=== PATIENT | male | born 1970 | race Caucasian/White ===

== ENCOUNTER 2018-04-15 09:36 | Emergency (ER) | payer BC ==
[~2018-04-15] VITALS: Ht 165.1 cm; Wt 102.4 kg
[2018-04-15 10:40] LABS: BASOPHIL (%) 0.7 % (0-1); BASOPHIL COUNT 0.1 K/uL (0-0.1); EOSINOPHIL (%) 0.6 % (0-5); EOSINOPHIL COUNT 0.1 K/uL (0-0.3); HEMATOCRIT 43.5 % (38.0-50.0); HEMOGLOBIN 15.8 G/DL (12.5-16.6); IMMATURE GRANULOCYTE (%) 0.5 % (0.0-0.7); LYMPHOCYTE (%) 24.8 % (15-42); LYMPHOCYTE COUNT 2.2 K/uL (1.0-2.8); MCH 28.9 PG (29.0-34.0); MCHC 36.3 G/DL (30.0-36.0); MCV 79.5 FL (86-99); MONOCYTE (%) 5.3 % (3-12); MONOCYTE COUNT 0.5 K/uL (0-0.8); NEUTROPHIL (%) 68.1 % (45-76); NEUTROPHIL COUNT 6.1 K/uL (1.8-6.4); PLATELET COUNT 209 K/uL (156-360); RBC DIS.WIDTH-CV 11.9 % (11.8-14.6); RBC DIS.WIDTH-SD 34.2 % (39-53); RED BLOOD COUNT 5.47 M/uL (4.00-5.50); WHITE BLOOD COUNT 8.9 K/uL (4.1-10.2)
[2018-04-15 10:45] LABS: INTER. NORMALIZED RATIO 1.1
[2018-04-15 10:48] LABS: PTT 24.6 SEC (25-37)
[2018-04-15 10:50] LABS: CHLORIDE 101 mEq/L (99-109); POTASSIUM 4.2 mEq/L (3.7-5.4); SODIUM 136 mEq/L (136-147)
[2018-04-15 10:52] LABS: GLUCOSE 354 mg/dL (70-99)
[2018-04-15 10:56] LABS: GFR ESTIMATE (CALCULATED) > 59 mL/min/ (58.99-99999)
[2018-04-15 10:57] LABS: UREA NITROGEN (BUN) 15 mg/dL (9-23)
[2018-04-15] MEDS ORDERED: KEFLEX500 MG PO (13:18)
[2018-04-15 13:53] VITALS: BP 155/109
== END 2018-04-15 13:54 | disposition home or self-care (01) ==
LOC: EME 09:36
PROVIDERS: Physician Assistant
DX: L03.115 Cellulitis of right lower limb (principal); M79.661 Pain in right lower leg; Z86.718 Personal history of other venous thrombosis and embolism
CPT/HCPCS: 80048; 85025; 85610; 85730; 93971; 99281; 99283